=== PATIENT | male | born 1970 ===

== ENCOUNTER 2017-03-03 13:18 | Emergency (ER) | payer SELFPAY ==
[2017-03-03] MEDS ORDERED: Sodium Chloride 0.9% 1,000 ML IV STA (13:42)
[2017-03-03 13:44] VITALS: BP 159/99; PULSE 135; RESP 12; TEMP 99.9; O2SAT 95
--- NOTE | 2017-03-03 13:51 | ED PDOC ---
Arrival/HPI - General Chief Complaint: Substance Abuse Time Seen by Provider: 03/03/17 13:29 Historian: Patient - History of Present Illness Narrative History of Present Illness (Text): 46yo male with history of diabetes, asthma, presents to the ER after he had multiple episodes of vomiting. Patient states he was eating something spicy at [employer] after which he had the episodes of vomiting. Of note, patient states he drank 4 full Monster energy drinks earlier today. He reports associated sweats and dizziness. He denies any chest pain or shortness of breath. Denies back pain , fever, abdominal pain, numbness, weakness. Denies any drug use. Time/Duration: Prior to Arrival Symptom Onset: Sudden Past Medical History - Provider Review Nursing Documentation Reviewed: Yes - Infectious Disease Hx of Infectious Diseases: None - Endocrine/Metabolic Hx Diabetes Mellitus Type 2: Yes - Psychiatric Hx Substance Use: Yes Family/Social History - Physician Review Nursing Documentation Reviewed: Yes Family/Social History: No Known Family HX Smoking Status: Unknown If Ever Smoked Hx Alcohol Use: No Hx Substance Use: Yes Allergies/Home Meds Allergies/Adverse Reactions: Allergies aspirin Allergy (Verified 03/03/17 13:31) ANAPHYLAXIS Home Medications: Home Meds Medication Instructions Recorded Confirmed Unobtainable 03/03/17 03/03/17 Review of Systems - Physician Review All systems were reviewed & negative as marked: Yes - Review of Systems Respiratory: absent: SOB Cardiovascular: absent: Chest Pain Physical Exam - Physical Exam Narrative Physical Exam (Text): Constitutional: No acute distress. Head: Normocephalic. Atraumatic. Eyes: Pupils constricted. No nystagmus. ENT: Moist mucous membranes. Neck: Supple. Cardiovascular: Tachycardic. Chest: No tenderness. Respiratory: Clear to auscultation bilaterally. Pulse Ox 97% on room air. GI: Soft. Nontender. Nondistended. Back: No CVA tenderness. Musculoskeletal: No tenderness or swelling of extremities. Skin: No rash. Diaphoretic. Warm to touch. Neurologic: Alert, no focal deficit. Vital Signs Reviewed: Yes Vital Signs Temp Pulse Resp BP Pulse Ox 03/03/17 13:42 99.9 F H 135 H 12 159/99 H 95 Pulse: Tachycardic Respiratory Rate: Normal Appearance: Positive for: Well-Appearing, Non-Toxic, Comfortable Medical Decision Making ED Course and Treatment: Plan: -- Labs -- Chest X-ray -- Ativan 1mg IVP -- Zofran 8mg IVP -- IV Fluids 03/03/17 13:51 EKG: Sinus rhythm Rate: [address] elevations Normal [place] T-wave inversions V5 and V6 03/03/17 15:36 Patient's evaluation ongoing. However, patient wished to leave hospital. He was alert and oriented and answered questions reasonably. He states he understands the risk of or permanent disability and that the hospital is not responsible. Signed AMA form. - Lab Interpretations Lab Results: 03/03/17 13:48 03/03/17 13:48 Lab Results 03/03/17 14:06: Blood Type A POSITIVE, Antibody Screen Negative, BBK History Checked No verified bt 03/03/17 13:48: Sodium 142, Potassium 3.7, Chloride 102, Carbon Dioxide 25, Anion Gap 19, BUN 13, Creatinine 1.6 H, Est GFR ( Amer) 57, Est GFR (Non- Af Amer) 47, Random Glucose 177 H, Calcium 9.9, Total Bilirubin 0.8, AST 48, ALT 45, Alkaline Phosphatase 67, Total Creatine Kinase 173, Troponin I Pending, NT-Pro-B Natriuret Pep Pending, Total Protein 8.0, Albumin 4.4, Globulin 3.6, Albumin/Globulin Ratio 1.2, Lipase 76 03/03/17 13:48: D-Dimer, Quantitative 216 03/03/17 13:48: WBC 8.6, RBC 5.16, Hgb 15.8, Hct 45.2, MCV 87.6, MCH 30.6, MCHC 35.0, RDW 12.2, Plt Count 260, MPV 10.2, Gran % 55.8, Lymph % (Auto) 36.4 H, Titus % (Auto) 6.1 H, Eos % (Auto) 1.1 L, Baso % (Auto) 0.6, Gran # 4.79, Lymph # 3.1, Titus # 0.5, Eos # 0.1, Baso # 0.05 - RAD Interpretation Radiology Orders: 03/03/17 13:42 CHEST TWO VIEWS (PA/LAT) [RAD] Stat - Medication Orders Current Medication Orders: Discontinued Medications Sodium Chloride (Sodium Chloride 0.9%) 1,000 mls @ 999 mls/hr IV .Q1H1M STA Stop: 03/03/17 14:42 Last Admin: 03/03/17 14:05 Dose: 999 mls/hr eMAR Start Stop Document 03/03/17 14:05 RG (Rec: 03/03/17 14:05 [id number] Intravenous Solution Start Date 03/03/17 Start Time 14:05 End Date 03/03/17 Lorazepam (Ativan) 1 mg IVP ONCE ONE PRN Reason: Protocol Stop: 03/03/17 13:51 Last Admin: 03/03/17 14:06 Dose: Not Given Non-Admin Reason: Patient Refused IVP Administration Document 03/03/17 14:06 (Rec: 03/03/17 14:46 [id number] Charges for Administration # of IVP Administrations 0 Ondansetron HCl (Zofran Inj) 8 mg IVP STAT STA Stop: 03/03/17 13:43 Last Admin: 03/03/17 14:04 Dose: 8 mg IVP Administration Document 03/03/17 14:04 (Rec: 03/03/17 14:05 [id number] Charges for Administration # of IVP Administrations 1 - Scribe Statement The provider has reviewed the documentation as recorded by the Dominga Carrera Provider Scribe Attestation: All medical record entries made by the Scribe were at my direction and personally dictated by me. I have reviewed the chart and agree that the record accurately reflects my personal performance of the history, physical exam, medical decision making, and the department course for this patient. I have also personally directed, reviewed, and agree with the discharge instructions and disposition. Disposition/Present on Arrival - Present on Arrival Any Indicators Present on Arrival: No History of DVT/PE: No History of Uncontrolled Diabetes: No Urinary Catheter: No History of Decub. Ulcer: No History Surgical Site Infection Following: None - Disposition Have Diagnosis and Disposition been Completed?: Yes Diagnosis: Left against medical advice, Tachycardia Disposition: HOME/ ROUTINE Disposition Time: 15:02 Patient Plan: Discharge Condition: UNKNOWN Discharge Instructions (ExitCare): Against Medical Advice (ED) Referrals: Greyson Ham, [Primary Care Provider] - Follow up with primary Forms: [employer] (Russian) Against Medical Advice - AMA Patient Left Against Medical Advice: The patient declines admission to the hospital and wishes to leave the Emergency Department. This action is against my medical advice. This decision was made with informed refusal. The patient was told that admission to the hospital is necessary. Explanation of the reasons why were discussed. The risks of leaving were explained to the patient and include, but are not limited to, worsening of known or currently unknown conditions, permanent disability and from undiagnosed or untreated conditions. The patient has the capacity to make this informed decision and understands my explanation of the current medical problem and risks of leaving. The patient voluntarily accepts these risks and signed an AMA form documenting our conversation. The patient was given the opportunity to ask questions and reconsider. The patient was encouraged to return to the Emergency Department at any time for further care.
[2017-03-03 13:58] LABS: BASO # 0.05 K/mm3 (0.0-2.0); BASO % 0.6 % (0.0-3.0); EOS # 0.1 (0.0-0.7); EOS % 1.1 % (1.5-5.0); GRAN # 4.79 (1.4-6.5); GRAN % 55.8 % (50.0-68.0); HEMOGLOBIN 15.8 g/dL (14.0-18.0); LYMPH # 3.1 (1.2-3.4); LYMPH % 36.4 % (22.0-35.0); MEAN CELL VOLUME 87.6 fl (80.0-105.0); MEAN CORPUSCULAR HEMOGLOBIN 30.6 pg (25.0-35.0); MEAN PLATELET VOLUME 10.2 fl (7.0-11.0); MONO # 0.5 (0.1-0.6); MONO % 6.1 % (1.0-6.0); RBC 5.16 10^6/uL (3.5-6.1); RED CELL DISTRIBUTION WIDTH 12.2 % (11.5-14.5); WHITE BLOOD COUNT 8.6 10^3/ul (4.5-11.0)
[2017-03-03 14:15] LABS: ALB/GLOB RATIO 1.2 (1.1-1.8); ALBUMIN 4.4 g/dL (3.0-4.8); ALT/SGPT 45 U/L (7-56); AST/SGOT 48 U/L (17-59); BLOOD UREA NITROGEN 13 mg/dL (7-21); CALCIUM 9.9 mg/dL (8.4-10.5); GFR AFRICAN-AMERICAN 57; GFR NON-AFRICAN AMERICAN 47; LIPASE 76 U/L (23-300)
--- NOTE | 2017-03-03 16:11 | RAD ---
HISTORY: hypoxia COMPARISON: None available. TECHNIQUE: Chest PA and lateral FINDINGS: Examination limited by habitus. LUNGS: No focal consolidation. Please note that chest x-ray has limited sensitivity for the detection of pulmonary masses. PLEURA: No significant pleural effusion identified. No definite pneumothorax . CARDIOVASCULAR: The cardiomediastinal silhouette appears within normal limits of size. OSSEOUS STRUCTURES: Expansion of the posterior mid right rib possibly related to remote fracture deformity; correlate clinically. Adjacent radiopaque foreign bodies/densities noted. VISUALIZED UPPER ABDOMEN: Unremarkable. OTHER FINDINGS: None. IMPRESSION: No focal consolidation, significant pleural effusion, or definite pneumothorax identified. Expansion of the posterior mid right rib possibly related to remote fracture deformity; correlate clinically. Adjacent radiopaque foreign bodies/densities noted.
[2017-03-03 18:31] LABS: B-TYPE NATRIURETIC PEPTIDE 238 pg/mL (0-450); TROPONIN I < 0.01 ng/mL
--- NOTE | 2017-03-03 21:33 | CARD ---
APPROVED REPORT EKG Measurement Heart [id number] ID [id number] <Conclusion> Sinus tachycardia Possible Left atrial enlargement Left ventricular hypertrophy ST & T wave abnormality, consider inferolateral ischemia Abnormal ECG
== END 2017-03-03 15:14 | disposition left against medical advice (07) ==
LOC: ED 13:18
DX: R00.0 Tachycardia, unspecified (principal); E11.9 Type 2 diabetes mellitus without complications
CPT/HCPCS: 71046; 80053; 82550; 83690; 83880; 84443; 84484; 85025; 85378; 86850; 86900; 93005; 96374; 99284; G0480; J2405; J7040